=== PATIENT | female | born 1970 | race Native Hawaiian/Other Pacific Islander ===

== ENCOUNTER 2021-05-22 02:17 | Observation (INO) ==
[2021-05-22] MEDS ORDERED: LaCOSAMide VIAL 200 MG in NS 0.9% 50 ML 50 ML IV ONE (02:35)
[2021-05-22 03:06] LABS: Hematocrit 35 % (35-47); Hemoglobin 11.7 g/dL (12.0-16.0); Mean Corpuscular HGB Conc 33 g/dL (31-36); Mean Corpuscular Hemoglobin 28 pg (27-31); Mean Corpuscular Volume 83 fL (80-97); Platelet Count 398 10^3/uL (150-450); Red Blood Count 4.24 10^6 /uL (3.70-4.87); Red Cell Distribution Width 16 % (10-15); White Blood Count 14.7 10^3/uL (3.5-10.8)
[2021-05-22 03:08] LABS: ABS Basophils 0.1 10^3/ul (0-0.2); ABS Eosinophils 0.4 10^3/ul (0-0.6); ABS Lymphocytes 5.1 10^3/ul (1.0-4.8); ABS Monocytes 1.1 10^3/ul (0-0.8); ABS Neutrophils 7.9 10^3/ul (1.5-7.7); Nucleated Red Blood Cells % 0.1
[2021-05-22 03:10] LABS: INR 0.94 (0.86-1.15)
[2021-05-22 03:33] LABS: ALT 11 U/L (7-52); AST 13 U/L (13-39); Albumin 3.8 g/dL (3.2-5.2); Albumin/Globulin Ratio 1.4 (1-3); Alkaline Phosphatase 104 U/L (35-149); Anion Gap 6 mmol/L (2-11); Blood Urea Nitrogen 12 mg/dL (6-24); CO2 Carbon Dioxide 25 mmol/L (22-32); Calcium 8.3 mg/dL (8.6-10.3); Chloride 108 mmol/L (101-111); Globulin 2.7 g/dL (2-4); Glucose 113 mg/dL (70-100); Magnesium 2.1 mg/dL (1.9-2.7); Potassium 3.5 mmol/L (3.5-5.0); Sodium 139 mmol/L (135-145); Total Protein 6.5 g/dL (6.4-8.9); eGFR CKD-EPI 92.2 (>60)
[2021-05-22] MEDS ORDERED: Lorazepam PYXIS KEY PRN (04:40)
[2021-05-22] MEDS ORDERED: LORazepam 2 mg VIAL 1 ml IV PUSH PRN (04:40)
[2021-05-22] MEDS ORDERED: Ondansetron 4 mg VIAL 2 MG/ML 2 ml VIAL IV PRN (04:56)
[2021-05-22] MEDS: Lidocaine PATCH 5% PATCH TRANSDERM SCH ×2 (05:15→09:01)
[2021-05-22] MEDS ORDERED: Calcium Carb (TUMS) 500 mg CHEW TAB PO PRN (05:31)
[2021-05-22 08:50] LABS: Urine Appearance Clear; Urine Bilirubin Negative (Negative); Urine Blood Negative (Negative); Urine Color Yellow; Urine Glucose Negative (Negative); Urine Ketones Negative (Negative); Urine Nitrite Negative (Negative); Urine Protein Negative (Negative); Urine Specific Gravity 1.011 (1.002-1.030); Urine Urobilinogen Negative (Negative)
[2021-05-22 08:56] LABS: Urine Bacteria 1+ (Absent); Urine Red Blood Cell Trace(0-2/hpf) (Absent); Urine Squamous Epithelial Cell Present (Absent); Urine White Blood Cell 1+(6-10/hpf) (Absent)
[2021-05-22 09:09] LABS: Urine Benzodiazepine Screen Presumptive Positive (None Detect); Urine Cannabinoids Screen Presumptive Positive (None Detect); Urine Opiates Screen None Detected (None Detect)
[2021-05-22] MEDS: Enoxaparin 40 MG/0.4 ML SYR SUBCUT SCH (09:11)
[2021-05-22 10:42] LABS: Alcohol, S < 13 mg/dL (<13)
[2021-05-22] MEDS ORDERED: Lidocaine Patch REMOVE NOTE PATCH OFF SCH (21:00)
[2021-05-22] MEDS: DULoxetine DR 60 mg CAP PO SCH (21:27)
[2021-05-23 05:26] LABS: ABS Basophils 0.1 10^3/ul (0-0.2); ABS Eosinophils 0.4 10^3/ul (0-0.6); ABS Lymphocytes 4.5 10^3/ul (1.0-4.8); ABS Monocytes 0.8 10^3/ul (0-0.8); ABS Neutrophils 4.7 10^3/ul (1.5-7.7); Eosinophil % 4.2 %; Hematocrit 37 % (35-47); Hemoglobin 12.3 g/dL (12.0-16.0); Lymphocyte % 42.6 %; Mean Corpuscular HGB Conc 33 g/dL (31-36); Mean Corpuscular Hemoglobin 28 pg (27-31); Mean Corpuscular Volume 83 fL (80-97); Platelet Count 406 10^3/uL (150-450); Red Blood Count 4.48 10^6 /uL (3.70-4.87); Red Cell Distribution Width 16 % (10-15); White Blood Count 10.5 10^3/uL (3.5-10.8)
[2021-05-23 05:42] LABS: Calcium 8.6 mg/dL (8.6-10.3); Potassium 3.7 mmol/L (3.5-5.0); eGFR CKD-EPI 107.4 (>60)
[2021-05-23 08:06] VITALS: BP 131/73
[2021-05-23] MEDS: DULoxetine DR 60 mg CAP PO SCH (08:37)
[2021-05-23] MEDS: Lidocaine PATCH 5% PATCH TRANSDERM SCH (08:39)
[2021-05-23] MEDS: Enoxaparin 40 MG/0.4 ML SYR SUBCUT SCH (08:40)
[2021-05-25 08:07] LABS: Topiramate 7.1 mcg/mL
[2021-05-25 12:21] LABS: Lacosamide 4.1 mcg/mL (1.0 - 10.0)
== END 2021-05-23 14:15 | disposition home or self-care (01) ==
LOC: EDHOLD 02:17 → ED 02:17 → MEDTELE 11:19
PROVIDERS: ADMIT Internal Medicine; ATTEND Internal Medicine

== ENCOUNTER 2022-12-02 00:33 | Observation (INO) ==
[2022-12-02] MEDS ORDERED: levETIRAcetam IV 1,500 MG in NS 0.9% 100 ml BAG 100 ML IVPB ONE (00:37)
[2022-12-02] MEDS: LORazepam 2 mg VIAL 1 ml IV PUSH ONE ×2 (00:40→12:46)
[2022-12-02 01:05] LABS: ABS Basophils 0.1 10^3/uL (0.0-0.1); ABS Eosinophils 0.2 10^3/uL (0.0-0.5); ABS Monocytes 1.1 10^3/uL (0.0-0.9); ABS Neutrophils 5.3 10^3/uL (1.5-7.6); ABS Nucleated RBC 0.01 10^3/ul; Hematocrit 37.3 % (35-45); Hemoglobin 12.6 g/dL (11.5-14.3); Lymphocyte % 42.8 %; Mean Corpuscular Hemoglobin 27.8 pg (27-33); Mean Corpuscular Hgb Conc 33.9 g/dL (31-36); Mean Corpuscular Volume 82.2 fL (80-97); Mean Platelet Volume 8.9 fL (7.5-11.2); Nucleated Red Blood Cells % 0.1 /100 WBC (0.0-0.4); Platelet Count 325 10^3/uL (150-450); Red Blood Count 4.53 10^6/uL (3.63-4.92); White Blood Count 11.6 10^3/uL (3.8-11.8)
[2022-12-02] MEDS ORDERED: Lorazepam PYXIS KEY PRN (01:19)
[2022-12-02 01:23] LABS: ALT 9 U/L (7-52); AST 15 U/L (13-39); Albumin 4.1 g/dL (3.2-5.2); Albumin/Globulin Ratio 1.4 (1-3); Alkaline Phosphatase 145 U/L (35-149); Anion Gap 12 mmol/L (2-16); Blood Urea Nitrogen 10 mg/dL (6-24); CO2 Carbon Dioxide 22 mmol/L (22-32); Calcium 9.3 mg/dL (8.6-10.3); Chloride 106 mmol/L (101-111); Creatine Kinase 60 U/L (10-223); Creatinine, Serum 0.66 mg/dL (0.51-0.95); Glucose 131 mg/dL (70-100); Phosphorus 3.4 mg/dL (2.5-5.0); Potassium 3.3 mmol/L (3.5-5.0); Sodium 140 mmol/L (135-145); Total Protein 7.1 g/dL (6.4-8.9); eGFR CKD-EPI 107.5 (>60)
[2022-12-02 01:29] LABS: HCG Pregnancy 3.27 mIU/mL
[2022-12-02 01:43] LABS: Alcohol, S < 13 mg/dL (<13); Phenytoin 7.7 mcg/mL (10-20)
[2022-12-02] MEDS ORDERED: Lactated Ringers 1000 ml BAG 1,000 ML IV ONE (01:44)
[2022-12-02] MEDS ORDERED: Acetaminophen IV 1 GM/100ML 1,000 MG/100 ML BAG IV ONE ×2 (02:44→16:13)
[2022-12-02] MEDS ORDERED: levETIRAcetam 1000MG IVPREMIX 1,000 MG/100 ML BAG IVPB ONE (12:49)
[2022-12-02] MEDS ORDERED: LORazepam 2 mg VIAL 1 ml ONE (12:51)
[2022-12-02] MEDS ORDERED: Fosphenytoin 1,000 MG in NS 0.9% 50 ML 50 ML IVPB ONE (12:53)
[2022-12-02 13:58] LABS: ALT 10 U/L (7-52); Albumin 3.7 g/dL (3.2-5.2); Albumin/Globulin Ratio 1.3 (1-3); Alkaline Phosphatase 132 U/L (35-149); Blood Urea Nitrogen 7 mg/dL (6-24); CO2 Carbon Dioxide 26 mmol/L (22-32); Calcium 8.9 mg/dL (8.6-10.3); Chloride 107 mmol/L (101-111); Creatinine, Serum 0.58 mg/dL (0.51-0.95); Globulin 2.8 g/dL (2-4); Glucose 101 mg/dL (70-100); Sodium 143 mmol/L (135-145); Total Protein 6.5 g/dL (6.4-8.9); eGFR CKD-EPI 110.9 (>60)
[2022-12-02 14:02] LABS: Anion Gap 10 mmol/L (2-16)
[2022-12-02 14:20] LABS: C Reactive Protein 9.54 mg/L (<8.01)
[2022-12-02] MEDS: KCL 20 MEQ/100 ML IVPREMIX 20 MEQ/100 ML BAG IV SCH ×2 (14:50→16:01)
[2022-12-02] MEDS ORDERED: Potassium Chloride LIQUID 20 MEQ/15 ML LIQUID PO ONE (15:10)
[2022-12-02 15:39] LABS: Potassium Redraw 3.7 mmol/L (3.5-5.0)
[2022-12-02] MEDS: Phenytoin 100 mg ER CAP PO SCH (20:32)
[2022-12-03] MEDS: Phenytoin 100 mg ER CAP PO SCH (08:02)
[2022-12-03] MEDS ORDERED: LORazepam 2 mg VIAL 1 ml ONE ×5 (08:16→10:59)
[2022-12-03] MEDS ORDERED: LORazepam 2 mg VIAL 1 ml IV PUSH ONE ×3 (08:26→11:21)
[2022-12-03] MEDS ORDERED: Lorazepam PYXIS KEY PRN ×3 (08:26→11:20)
[2022-12-03] MEDS: DULoxetine DR 30 mg CAP PO SCH ×3 (08:51→20:22)
[2022-12-03 08:57] LABS: ABS Basophils 0.1 10^3/uL (0.0-0.1); ABS Eosinophils 0.2 10^3/uL (0.0-0.5); ABS Lymphocytes 3.1 10^3/uL (1.0-4.8); ABS Monocytes 0.6 10^3/uL (0.0-0.9); ABS Neutrophils 4.8 10^3/uL (1.5-7.6); Eosinophil % 1.9 %; Hematocrit 37.2 % (35-45); Hemoglobin 12.4 g/dL (11.5-14.3); Mean Corpuscular Hemoglobin 28.2 pg (27-33); Mean Corpuscular Hgb Conc 33.2 g/dL (31-36); Mean Platelet Volume 8.4 fL (7.5-11.2); Platelet Count 302 10^3/uL (150-450); Red Blood Count 4.38 10^6/uL (3.63-4.92); Red Cell Distribution Width 15.5 % (12-17); White Blood Count 8.8 10^3/uL (3.8-11.8)
[2022-12-03 09:15] LABS: Albumin 3.8 g/dL (3.2-5.2); Albumin/Globulin Ratio 1.4 (1-3); Creatinine, Serum 0.62 mg/dL (0.51-0.95); Globulin 2.8 g/dL (2-4); Magnesium 1.8 mg/dL (1.9-2.7); Phosphorus 3.4 mg/dL (2.5-5.0); Potassium 3.7 mmol/L (3.5-5.0); Total Bilirubin 0.2 mg/dL (0.2-1.0); Total Protein 6.6 g/dL (6.4-8.9); eGFR CKD-EPI 109.1 (>60)
[2022-12-03 10:08] LABS: Prolactin 9.1 ng/mL (1.0-25.0)
[2022-12-03] MEDS ORDERED: Valproic Acid IV 1,000 MG in NS 0.9% 100 ml BAG 100 ML IVPB ONE (11:20)
[2022-12-03 16:08] LABS: Urine Appearance Clear; Urine Bilirubin Negative (Negative); Urine Blood Negative (Negative); Urine Color Yellow; Urine Glucose Negative (Negative); Urine Ketones Negative (Negative); Urine Nitrite Negative (Negative); Urine Protein Negative (Negative); Urine Specific Gravity 1.011 (1.002-1.030); Urine Urobilinogen Negative (Negative)
[2022-12-03 16:25] LABS: Urine Benzodiazepine Screen None Detected (None Detect); Urine Cannabinoids Screen Presumptive Positive (None Detect); Urine Opiates Screen None Detected (None Detect)
[2022-12-04] MEDS: DULoxetine DR 30 mg CAP PO SCH (09:25)
[2022-12-04 11:22] VITALS: BP 134/85
[2022-12-07 19:27] LABS: Anaplasma phagocytophilum Negative (Negative); B. miyamotoi PCR, B Negative (Negative); Babesia divergens/MO-1 Negative (Negative); Babesia ducani Negative (Negative); Ehrlichia chaffeensis Negative (Negative); Ehrlichia ewingii/canis Negative (Negative); Ehrlichia muris eauclairensis Negative (Negative)
== END 2022-12-04 13:15 | disposition home or self-care (01) ==
LOC: ED 00:33 → EDHOLD 00:33 → SUATTDRO 02:31 → MEDTELE 05:26 → ICU 13:18
PROVIDERS: ADMIT Hospitalist; ATTEND Internal Medicine Critical Care Medicine